=== PATIENT | male | born 1965 | race Caucasian/White ===

== ENCOUNTER → 2020-05-03 | Emergency (ER) | payer MEDICAID ==
[~2020-05-03] VITALS: Ht 172.7 cm; Wt 74.8 kg
[~2020-05-03] MED LIST: GASTROGRAFIN 120 ML SOL ONE; ONDANSETRON HCL 4 MG/2 ML VIAL IV ONE; ONDANSETRON HCL 4 MG/2 ML VIAL ONE; POTASSIUM EFFERVESENT TAB 25 MEQ PO ONE; PROMETHAZINE HCL 25 MG/ML 1ML IV PRN; SODIUM CHLORIDE 0.9% 1,000 ML IVB ONE
[2020-05-03 03:36] LABS: Hematocrit 52.7 % (41.0-53.0); Hemoglobin 18.6 g/dL (13.5-17.5); Mean Corpuscular Hemoglobin 29.8 pg (28.0-32.0); Mean Corpuscular Hgb Conc. 35.3 g/dL (32.0-36.0); Mean Corpuscular Volume 84.5 fL (80.0-100.0); Platelet Count (auto) 476 10^3/uL (140-450); Red Blood Cells 6.24 10^6/uL (4.5-5.90); Red Cell Distribution Width 12.8 % (11.8-14.3); White Blood Cell 6.3 10^3/uL (4.4-10.8)
[2020-05-03 03:52] LABS: Alanine Aminotransferase 54 U/L (16-61); Albumin 3.9 g/dL (3.4-5.0); Anion Gap 10 (5-15); Aspartate Aminotransferase 24 U/L (15-37); BUN/Creatinine Ratio 13.7; Basophils % (manual) 0 (0.0-2.0); Blast Cells 0; Blood Urea Nitrogen 18 mg/dL (7-18); Calcium 9.6 mg/dL (8.5-10.1); Carbon Dioxide 22 mmol/L (21-32); Chloride 101 mmol/L (98-107); GFR African American 73 mL/min; GFR Non-African American 61 mL/min; Glucose 122 mg/dL (74-106); Metamyelocytes % 0; Myelocytes % 0; Potassium 3.4 mmol/L (3.5-5.1); Promyelocytes % 0; Reactive Lymphocytes 0; Sodium 133 mmol/L (136-145)
[2020-05-03 03:57] LABS: Alkaline Phosphatase 129 U/L (45-117); Bilirubin, Total 0.7 mg/dL (0.2-1.0); Total Protein 9.1 g/dL (6.4-8.2)
[2020-05-03 06:49] LABS: Band Neutrophils % (manual) 32; Eosinophils % (manual) 2 (0-7); Lymphocytes % (manual) 19 (10.0-50.0)
[2020-05-03 06:50] LABS: Monocytes % (manual) 23 (0-12)
[2020-05-03 08:17] LABS: Magnesium 2.1 mg/dL (1.6-2.6)
[2020-05-03 16:54] VITALS: BP 157/101
== END | disposition home or self-care (01) ==
LOC: ER 03:12
DX: K52.9 Noninfective gastroenteritis and colitis, unspecified (principal); E87.6 Hypokalemia; F17.210 Nicotine dependence, cigarettes, uncomplicated; Z88.0 Allergy status to penicillin; Z20.822 Contact with and (suspected) exposure to COVID-19
CPT/HCPCS: 36415; 71046; 74176; 74250; 80053; 83690; 83735; 84484; 85007; 85027; 87426; 93005; 96361; 96374; 96375; 99285; J2405; J2550; Q9963

== ENCOUNTER 2021-10-30 19:44 | Emergency (ER) | payer MEDICAID | END 2021-10-30 21:31 | disposition left against medical advice (07) | LOC: ER 19:49 | DX: R10.9 Unspecified abdominal pain (principal); R19.7 Diarrhea, unspecified; Z53.21 Procedure and treatment not carried out due to patient leaving prior to being seen by health care provider ==

== ENCOUNTER 2022-05-06 22:04 | Emergency (ER) | payer MEDICAID ==
[~2022-05-06] VITALS: Ht 172.7 cm; Wt 77.0 kg
[2022-05-06] MEDS ORDERED: IOHEXOL 350 MG/ML 100ML IJ ONE (23:22)
[2022-05-06] MEDS ORDERED: HYDROmorphone HCL 2 MG/ML VL/or syr IV ONE (23:30)
[2022-05-06] MEDS ORDERED: ONDANSETRON HCL 4 MG/2 ML VIAL IV ONE (23:30)
[2022-05-07 00:16] LABS: Basophils # (auto) 0.1 10 ^3/uL (0-0.2); Basophils % (auto) 1.3 % (0.0-2.0); Eosinophils # (auto) 0.1 10 ^3/uL (0-0.8); Eosinophils % (auto) 1.2 % (0.0-7.0); Hematocrit 47.8 % (41.0-53.0); Hemoglobin 16.8 g/dL (13.5-17.5); Lymphocytes # (auto) 2.3 10 ^3/uL (0.4-5.4); Lymphocytes % (auto) 22.8 % (10.0-50.0); Mean Corpuscular Hemoglobin 30.3 pg (28.0-32.0); Mean Corpuscular Hgb Conc. 35.2 g/dL (32.0-36.0); Mean Corpuscular Volume 86.1 fL (80.0-100.0); Neutrophils # (auto) 6.4 10 ^3/uL (1.6-8.6); Neutrophils % (auto) 64.7 % (37.0-80.0); Nucleated Red Blood Cells % 0.2 %; Red Blood Cells 5.55 10^6/uL (4.5-5.90); White Blood Cell 9.9 10^3/uL (4.4-10.8)
[2022-05-07 00:46] LABS: Albumin 3.6 g/dL (3.4-5.0); Calcium 9.4 mg/dL (8.5-10.1); Potassium 3.7 mmol/L (3.5-5.1)
[2022-05-07 00:51] LABS: Bilirubin, Total 0.5 mg/dL (0.2-1.0); Total Protein 7.7 g/dL (6.4-8.2)
[2022-05-07 06:19] VITALS: BP 129/75
== END 2022-05-07 06:25 | disposition home or self-care (01) ==
LOC: ER 22:07
DX: I73.9 Peripheral vascular disease, unspecified (principal); F17.210 Nicotine dependence, cigarettes, uncomplicated; M79.672 Pain in left foot; M79.671 Pain in right foot; Z88.0 Allergy status to penicillin
CPT/HCPCS: 36415; 71045; 73706; 80053; 83880; 84484; 85025; 96374; 96375; 99285; J1170; J2405; Q9967

== ENCOUNTER 2022-07-22 00:04 | Emergency (ER) | payer MEDICAID ==
[~2022-07-22] VITALS: Ht 175.3 cm; Wt 79.5 kg
[2022-07-22] MEDS ORDERED: cefTRIAXone SOD 1,000 MG VL IM ONE (02:30)
[2022-07-22] MEDS ORDERED: CLIN300C8 PO (02:34)
[2022-07-22] MEDS ORDERED: PRED20TA2 PO (02:34)
[2022-07-22 03:57] VITALS: BP 135/94
== END 2022-07-22 04:05 | disposition home or self-care (01) ==
LOC: ER 00:04
DX: H66.91 Otitis media, unspecified, right ear (principal); J06.9 Acute upper respiratory infection, unspecified; F15.10 Other stimulant abuse, uncomplicated; F17.210 Nicotine dependence, cigarettes, uncomplicated; Z90.49 Acquired absence of other specified parts of digestive tract; Z79.2 Long term (current) use of antibiotics; Z79.899 Other long term (current) drug therapy; Z88.0 Allergy status to penicillin
CPT/HCPCS: 96372; 99283; J0696

== ENCOUNTER 2022-10-06 09:56 | Emergency (ER) | payer MEDICAID ==
[~2022-10-06] VITALS: Ht 172.7 cm; Wt 74.8 kg
[~2022-10-06 09:56] MED LIST changes: +CLIN300C70 PO; -GASTROGRAFIN 120 ML SOL ONE; -ONDANSETRON HCL 4 MG/2 ML VIAL IV ONE; -ONDANSETRON HCL 4 MG/2 ML VIAL ONE; -POTASSIUM EFFERVESENT TAB 25 MEQ PO ONE; +PRED20TA2 PO; -PROMETHAZINE HCL 25 MG/ML 1ML IV PRN; -SODIUM CHLORIDE 0.9% 1,000 ML IVB ONE
[2022-10-06 10:47] VITALS: BP 155/93; PULSE 95; RESP 18; TEMP 98.2; O2SAT 96
[2022-10-06] MEDS ORDERED: cefTRIAXone SOD 1,000 MG VL IM ONE (11:30)
[2022-10-06] MEDS ORDERED: AUG875T PO (13:14)
[2022-10-06] MEDS ORDERED: CEPH500C PO (13:14)
== END 2022-10-06 13:29 | disposition home or self-care (01) ==
LOC: ER 09:56
DX: L02.811 Cutaneous abscess of head [any part, except face] (principal); R21 Rash and other nonspecific skin eruption; F17.210 Nicotine dependence, cigarettes, uncomplicated; F15.10 Other stimulant abuse, uncomplicated
CPT/HCPCS: 76536; 96372; 99285; J0696

== ENCOUNTER 2024-07-21 06:22 | Emergency (ER) | payer MEDICAID, OTHER ==
[~2024-07-21] VITALS: Ht 172.7 cm; Wt 77.3 kg
[~2024-07-21 06:22] MED LIST changes: +AUG875T PO; +CEPH500C PO; +CLIN1CAP70 PO; -CLIN300C70 PO
--- NOTE | 2024-07-21 06:45 | ECG ---
[facility] Test Date: 2024-07-21 Test Time: 06:25:16 Pat Name: JEREMY BECKETT Department: ED Room: Gender: M [employer] Manager: GRACIE : 1965 Requested By: NIURKA PEDROZA Order Number: [id number] Reading MD: Cleve Eller Measurements Intervals [place] Rate: 79 P: 69 MN: 145 QRS: 89 QRSD: 107 T: 62 QT: 383 QTc: 440 Interpretive Statements Sinus rhythm Probable left atrial enlargement RSR' in V1 or V2, right VCD or RVH Baseline wander in lead(s) V1 Electronically Signed On 07-26-2024 11:38:16 PDT by Cleve Eller Please click the below link to view image of tracing.
--- NOTE | 2024-07-21 07:48 | ED.PDOC ---
GI ASSESSMENT HPI Comments 59 year old male JUVENTINO presents to the ED with chief complaint of abdominal pain. Patient reports that he has been experiencing upper abdominal pain with associated nausea, vomiting, and diarrhea for the past 2 days along with lower back pain for a week. Patient states the left side of his lower back hurts more. Patient denies any fever, chills, dysuria, cough, chest pain, SOB, or headache. Chief Complaint: Abdominal Pain Time Seen by MD: 07:46 Primary Care Provider: NONE Reviewed Notes: Nurses Notes, Airport [employer] Chief Notes, Medications, Allergies Allergies: Coded Allergies: Penicillins (Verified Allergy, Unknown, 05/03/20) Home Meds Active Scripts Cephalexin Monohydrate (Cephalexin) 500 Mg Cap, 500 MG PO QID for 5 Days, #20 CAP 0 Refills Prov:ROXI SEBASTIAN NP 10/06/22 Amoxicillin & Pot Clavulanate (AUGMENTIN TABLET) 875 Mg Tb, 875 MG PO BID for 7 Days, #14 TAB 0 Refills Prov:ROXI SEBASTIAN NP 10/06/22 Prednisone (Prednisone) 20 Mg Tab, 20 MG PO BID for 5 Days, #10 TAB 0 Refills Prov:KANG WANG 07/22/22 Clindamycin Hcl (Clindamycin Hcl) 300 Mg Cap, 1 CAP PO TID for 7 Days, #21 CAP 0 Refills Prov:KANG WANG 07/22/22 Information Source: Patient, Emergency Med Personnel Mode of Arrival: EMS Timing: Days Duration: Since onset Prehospital treatment: None Quality: Aching Vomitus: Watery Stool: Watery Severity: Moderate Recent: None Recent Hx of: None Pain Location: Epigastric Modifying Factors: Nothing Associated sign and symptoms: Nausea, Vomiting, Diarrhea, Abdominal Pain Past Medical History PAST MEDICAL HISTORY: Denies Surgical History: Appendectomy Family History Family History: Reviewed,noncontributory to illness, Unknown Social History Smoker: Cigarettes, Greater Than 1 Pack/Day Alcohol: Denies ETOH Use Drugs: Methamphetamine Lives In: Home Constitutional: denies: chills, diaphoresis, fatigue, fever, malaise, sweats, weakness, others EENTM: denies: blurred vision, double vision, ear bleeding, ear discharge, ear drainage, ear pain, ear ringing, eye pain, eye redness, hearing loss, mouth pa in, mouth swelling, nasal discharge, nose bleeding, nose congestion, nose pain, photophobia, tearing, throat pain, throat swelling, voice changes, others Respiratory: denies: cough, hemoptysis, orthopnea, SOB at rest, shortness of breath, SOB with excertion, stridor, wheezing, others Cardiovascular: denies: chest pain, dizzy spells, diaphoresis, Dyspnea on exertion, edema, irregular heart beat, left arm pain, lightheadedness, palpitations, PND, syncope, others Gastrointestinal: reports: abdominal pain, diarrhea, nausea, vomiting; denies: abdomen distended, blood streaked bowels, constipated, dysphagia, difficulty swallowing, hematemesis, melena, poor appetite, poor fluid intake, rectal bleeding, rectal pain, others Genitourinary: denies: burning, dysuria, flank pain, frequency, hematuria, incontinence, penile discharge, penile sore, pain, testicle pain, testicle swelling, urgency, others Neurological: denies: dizziness, fainting, headache, left sided numbness, left sided weakness, numbness, paresthesia, pre-existing deficit, right sided numbness, right sided weakness, seizure, speech problems, tingling, tremors, weakness, others Musculoskeletal: reports: back pain; denies: gout, joint pain, joint swelling, muscle pain, muscle stiffness, neck pain, others Integumetry: denies: bruises, change in color, change in hair/nails, dryness, laceration, lesions, lumps, rash, wounds, others Allergic/Immunocompromised: denies: Difficulty Healing, Frequent Infections, Hives, Itching, others Hematologic/Lymphatic: denies: anemia, blood clots, easy bleeding, easy bruising, swollen glands, others Endocrine: denies: excessive hunger, excessive sweating, excessive thirst, excessive urination, flushing, intolerance to cold, intolerance to heat, unexplained weight gain, unexplained weight loss, others Psychiatric: denies: anxiety, bipolar disorder, depression, hopeless, panic disorder, schizophrenia, sleepless, suicidal, others All Other Systems: Reviewed and Negative Physical Exam Exam Comments 59-year-old male with a severe back pain and diarrhea for the past few days General Appearance: Moderate Distress, Normal HEENT: Normal ENT Inspection, PERRL/EOMI, Pharynx Normal, TMs Normal Neck: Full Range of Motion, Non-Tender, Normal, Normal Inspection Respiratory: Chest Non-Tender, Lungs Clear, No Accessory Muscle Use, No Respiratory Distress, Normal Breath Sounds Cardiovascular: No Edema, No JVD, No Murmur, No Gallop, Normal Peripheral Pulses, Regular Rate/Rhythm Breast Exam: Deferred Gastrointestinal: No Organomegaly, Non Tender, No Pulsatile Mass, Normal Bowel Sounds, Soft, Other (Patient from the bag radiated into the anterior abdomen) Genitalia: Deferred Pelvic: Deferred Rectal: Deferred Extremities: No calf tenderness, Normal capillary refill, Normal inspection, Normal range of motion, Non-tender, No pedal edema Musculoskeletal : Location: Bilateral Extremity Location: Back Apperance: Normal, Limited ROM, Tenderness: Moderate Neurologic: Alert, lumber piler II-XII nml as Tested, No Motor Deficits, Normal Affect, Normal Mood, No Sensory Deficits Cerebellar Function: Normal Reflexes: Normal Skin: Dry, Normal Color, Warm Peripheral Pulses: 1+ carotid (R), 1+ carotid (L) Lymphatic: No Adenopathy Was a procedure done? Was a procedure done?: No GI differential Dx Differential Diagnosis: Diverticular disease, Gastritis/PUD, Gastroenteritis, UTI, Urolithiasis, Dehydration, Electrolyte Imbalance, Food Poisoning, Bacterial, Viral, Kidney Stone Other Differential Diagnosis Low back pain radiculopathy X-Ray, Labs, Meds, VS Vital Signs Date Time Temp Pulse Resp B/P (MAP) Pulse Ox O2 Delivery O2 Flow Rate FiO2 07/21/24 11:12 97.8 98 16 158/98 (118) 94 97.8 07/21/24 08:15 87 07/21/24 08:03 97 16 97 Room Air* 0 07/21/24 07:58 98.0 97 16 143/96 (112) 97 98.0 07/21/24 06:33 98.9 89 14 140/98 (112) 100 98.9 07/21/24 06:25 79 Lab Test 07/21/24 07:58 Range/Units White Blood Count 8.3 4.4-10.8 10^3/uL Red Blood Count 6.59 H 4.5-5.90 10^6/uL Hemoglobin 19.7 H 13.5-17.5 g/dL Hematocrit 57.0 H 41.0-53.0 % Mean Corpuscular Volume 86.5 80.0-100.0 fL Mean Corpuscular Hemoglobin 30.0 28.0-32.0 pg Mean Corpuscular Hemoglobin Concent 34.6 32.0-36.0 g/dL Red Cell Distribution Width 13.3 11.8-14.3 % Platelet Count 253 140-450 10^3/uL Mean Platelet Volume 8.3 6.9-10.8 fL Neutrophils (%) (Auto) 87.9 H 37.0-80.0 % Lymphocytes (%) (Auto) 4.3 L 10.0-50.0 % Monocytes (%) (Auto) 7.5 0.0-12.0 % Eosinophils (%) (Auto) 0.0 0.0-7.0 % Basophils (%) (Auto) 0.3 0.0-2.0 % Neutrophils # (Auto) 7.3 1.6-8.6 10 ^3/uL Lymphocytes # (Auto) 0.4 0.4-5.4 10 ^3/uL Monocytes # (Auto) 0.6 0-1.3 10 ^3/uL Eosinophils # (Auto) 0 0-0.8 10 ^3/uL Basophils # (Auto) 0 0-0.2 10 ^3/uL Nucleated Red Blood Cells 0.2 % Sodium Level 136 136-145 mmol/L Potassium Level 3.8 3.5-5.1 mmol/L Chloride Level 104 98-107 mmol/L Carbon Dioxide Level 23 20-31 mmol/L Anion Gap 9 5-15 Blood Urea Nitrogen 12 9-23 mg/dL Creatinine 1.09 0.700-1.30 mg/dL Glomerular Filtration Rate Calc 78 >90 mL/min BUN/Creatinine Ratio 11.0 10.0-20.0 Serum Glucose 121 H 74-106 mg/dL Calcium Level 9.6 8.7-10.4 mg/dL Magnesium Level 2.2 1.6-2.6 mg/dL Total Bilirubin 0.8 0.2-1.0 mg/dL Aspartate Amino Transferase (AST) 34 13-40 U/L Alanine Aminotransferase (ALT) 37 7-40 U/L Alkaline Phosphatase 129 H 46-116 U/L Total Protein 8.3 H 5.7-8.2 g/dL Albumin 4.8 3.2-4.8 g/dL Lipase 35 12-53 U/L X-Ray, Labs, Meds, VS Comment Course in the emergency department patient came in complaining of back pain for one week with some diarrhea EKG shows normal sinus rhythm at 87 with left atrial enlargement CBC 8300 with 67.9% neutrophils H&H 39.7 and 57 CMP negative except for blood sugar of 127 Lipase 35 Magnesium 2.2 Patient eloped Time of 1ST Reevaluation: 08:46 Reevaluation 1ST: Unchanged Time of 2ND Reevaluation: 16:58 Reevaluation 2ND: Improved Patient Education/Counseling: Diagnosis, Treatment Family Education/Counseling: No Family Present Departure 1 Departure Time of Disposition: 16:59 Impression: Primary Impression: Low back pain Qualified Codes: M54.50 - Low back pain, unspecified Disposition: 07 LEFT AWOL/ELOPED Condition: Fair Discharged With: Self Critical Care Note Critical Care Time?: No Stability Stability form required: No Heart Score Heart Score: Heart Score Response (Comments) Value History N/A 0 EKG Normal 0 Age 45-64 1 Risk Factors No known risk factors 0 Troponin N/A 0 Total 1 I personally scribed for NIURKA PEDROZA MD ([email or web address]) on 07/21/24 at 07:47. Electronically submitted by Andrea Ahmadi ([email or web address]). NIURKA PEDROZA MD July 21, 2024 07:47
[2024-07-21 08:03] VITALS: PULSE 97; RESP 16; O2SAT 97
[2024-07-21 08:30] LABS: Basophils # (auto) 0 10 ^3/uL (0-0.2); Basophils % (auto) 0.3 % (0.0-2.0); Eosinophils # (auto) 0 10 ^3/uL (0-0.8); Lymphocytes # (auto) 0.4 10 ^3/uL (0.4-5.4); Monocytes # (auto) 0.6 10 ^3/uL (0-1.3); Nucleated Red Blood Cells % 0.2 %
[2024-07-21 08:32] LABS: Hemoglobin 19.7 g/dL (13.5-17.5); Lymphocytes % (auto) 4.3 % (10.0-50.0); Mean Corpuscular Hgb Conc. 34.6 g/dL (32.0-36.0); Mean Corpuscular Volume 86.5 fL (80.0-100.0); Monocytes % (auto) 7.5 % (0.0-12.0); Neutrophils # (auto) 7.3 10 ^3/uL (1.6-8.6); Neutrophils % (auto) 87.9 % (37.0-80.0); Platelet Count (auto) 253 10^3/uL (140-450); Red Blood Cells 6.59 10^6/uL (4.5-5.90); Red Cell Distribution Width 13.3 % (11.8-14.3); White Blood Cell 8.3 10^3/uL (4.4-10.8)
[2024-07-21 08:48] LABS: Alanine Aminotransferase 37 U/L (7-40); Anion Gap 9 (5-15); Blood Urea Nitrogen 12 mg/dL (9-23); Calcium 9.6 mg/dL (8.7-10.4); Carbon Dioxide 23 mmol/L (20-31); Chloride 104 mmol/L (98-107); Lipase 35 U/L (12-53); Magnesium 2.2 mg/dL (1.6-2.6); Potassium 3.8 mmol/L (3.5-5.1)
[2024-07-21 08:49] LABS: Aspartate Aminotransferase 34 U/L (13-40); Bilirubin, Total 0.8 mg/dL (0.2-1.0)
[2024-07-21 08:54] LABS: Albumin 4.8 g/dL (3.2-4.8); Alkaline Phosphatase 129 U/L (46-116); Glucose 121 mg/dL (74-106); Sodium 136 mmol/L (136-145); Total Protein 8.3 g/dL (5.7-8.2)
[2024-07-21] MEDS: HYDROmorphone HCL 2 MG/ML VL/or syr IV ONE (09:30)
[2024-07-21] MEDS: METOCLOPRAMIDE HCL 5MG/ml INJ 2ml VIAL IV ONE (09:30)
[2024-07-21] MEDS: SODIUM CHLORIDE 0.9% 500 ML IVB ONE (09:30)
[2024-07-21 11:12] VITALS: BP 158/98; PULSE 98; RESP 16; TEMP 97.8; O2SAT 94
--- NOTE | 2024-07-23 12:27 | ECG ---
[facility] Test Date: 2024-07-21 Test Time: 08:15:26 Pat Name: JEREMY BECKETT Department: ED Room: Gender: M [employer] Hel[employer]: ID : [id number] Requested By: NIURKA PEDROZA Order Number: [id number] Reading MD: Cleve Eller Measurements Intervals [place] Rate: 87 P: 70 LA: 154 QRS: 84 QRSD: 97 T: 56 QT: 366 QTc: 441 Interpretive Statements Sinus rhythm Probable left atrial enlargement RSR' in V1 or V2, right VCD or RVH Baseline wander in lead(s) II,III,aVF Electronically Signed On 07-26-2024 11:38:36 PDT by Cleve Eller Please click the below link to view image of tracing.
== END 2024-07-21 16:16 | disposition left against medical advice (07) ==
LOC: ER 06:22 → EDBD 06:22 → ER 16:16
DX: M54.50 Low back pain, unspecified (principal); R11.2 Nausea with vomiting, unspecified; F17.210 Nicotine dependence, cigarettes, uncomplicated; Z90.49 Acquired absence of other specified parts of digestive tract; Z88.0 Allergy status to penicillin; Z79.899 Other long term (current) drug therapy
CPT/HCPCS: 36415; 80053; 83690; 83735; 85025; 93005

== ENCOUNTER 2024-07-23 06:13 | Inpatient (IN) | payer OTHER ==
[~2024-07-23] VITALS: Ht 172.7 cm; Wt 77.6 kg
--- NOTE | 2024-07-23 06:30 | ED.PDOC ---
GI ASSESSMENT HPI Comments 59-year-old male BIBA with prior medical history of appendectomy in the chief complaint of hematemesis for three days. EMS state that the patient was here three days given but was discharged. Patient reports on having worsening epigastric pain which radiates to the left lower quadrant and came into the ER, because he is unable to take the pain anymore. Patient is allergic to penicillin. Denies chills, fever, /D, SOB, CP. No other associated symptoms, modifiers, recent injuries or sick contacts present at this time. Chief Complaint: Abdominal Pain Time Seen by MD: 06:15 Primary Care Provider: NONE Reviewed Notes: Nurses Notes, Medications, Allergies Allergies: Coded Allergies: Penicillins (Verified Allergy, Unknown, 05/03/20) Home Meds Active Scripts Cephalexin Monohydrate (Cephalexin) 500 Mg Cap, 500 MG PO QID for 5 Days, #20 CAP 0 Refills Prov:ROXI SEBASTIAN NP 10/06/22 Amoxicillin & Pot Clavulanate (AUGMENTIN TABLET) 875 Mg Tb, 875 MG PO BID for 7 Days, #14 TAB 0 Refills Prov:ROXI SEBASTIAN NP 10/06/22 Prednisone (Prednisone) 20 Mg Tab, 20 MG PO BID for 5 Days, #10 TAB 0 Refills Prov:KANG WANG 07/22/22 Clindamycin Hcl (Clindamycin Hcl) 300 Mg Cap, 1 CAP PO TID for 7 Days, #21 CAP 0 Refills Prov:KANG WANG 07/22/22 Information Source: Patient Mode of Arrival: EMS Timing: Days Duration: Since onset, Days Prehospital treatment: None Quality: Aching Vomitus: Bloody Stool: Normal Severity: Moderate Recent: None Recent Hx of: None Pain Location: Epigastric, LLQ Associated sign and symptoms: Nausea, Vomiting, Abdominal Pain Past Medical History PAST MEDICAL HISTORY: Denies Surgical History: Appendectomy Family History Family History: Reviewed,noncontributory to illness, Unknown Social History Smoker: Unknown Alcohol: Unknown Drugs: Unknown Lives In: Home Constitutional: denies: chills, diaphoresis, fatigue, fever, malaise, sweats, weakness, others EENTM: denies: blurred vision, double vision, ear bleeding, ear discharge, ear drainage, ear pain, ear ringing, eye pain, eye redness, hearing loss, mouth pain, mouth swelling, nasal discharge, nose bleeding, nose congestion, nose pain, photophobia, tearing, throat pain, throat swelling, voice changes, others Respiratory: denies: cough, hemoptysis, orthopnea, SOB at rest, shortness of breath, SOB with excertion, stridor, wheezing, others Cardiovascular: denies: chest pain, dizzy spells, diaphoresis, Dyspnea on exertion, edema, irregular heart beat, left arm pain, lightheadedness, palpitations, PND, syncope, others Gastrointestinal: reports: abdominal pain, nausea, vomiting; denies: abdomen distended, blood streaked bowels, constipated, diarrhea, dysphagia, difficulty swallowing, hematemesis, melena, poor appetite, poor fluid intake, rectal bleeding, rectal pain, others Genitourinary: denies: burning, dysuria, flank pain, frequency, hematuria, incontinence, penile discharge, penile sore, pain, testicle pain, testicle swelling, urgency, others Neurological: denies: dizziness, fainting, headache, left sided numbness, left sided weakness, numbness, paresthesia, pre-existing deficit, right sided numbness, right sided weakness, seizure, speech problems, tingling, tremors, weakness, others Musculoskeletal: denies: back pain, gout, joint pain, joint swelling, muscle pain, muscle stiffness, neck pain, others Integumetry: denies: bruises, change in color, change in hair/nails, dryness, laceration, lesions, lumps, rash, wounds, others Allergic/Immunocompromised: denies: Difficulty Healing, Frequent Infections, Hives, Itching, others Hematologic/Lymphatic: denies: anemia, blood clots, easy bleeding, easy bruising, swollen glands, others Endocrine: denies: excessive hunger, excessive sweating, excessive thirst, excessive urination, flushing, intolerance to cold, intolerance to heat, unexplained weight gain, unexplained weight loss, others Psychiatric: denies: anxiety, bipolar disorder, depression, hopeless, panic disorder, schizophrenia, sleepless, suicidal, others All Other Systems: Reviewed and Negative Physical Exam General Appearance: No Apparent Distress, Normal HEENT: Normal ENT Inspection, Pharynx Normal, TMs Normal Neck: Full Range of Motion, Non-Tender, Normal, Normal Inspection Respiratory: Chest Non-Tender, Lungs Clear, No Accessory Muscle Use, No Respiratory Distress, Normal Breath Sounds Cardiovascular: No Edema, No JVD, No Murmur, No Gallop, Normal Peripheral Pulses, Regular Rate/Rhythm Breast Exam: Deferred Gastrointestinal: No Organomegaly, Non Tender, No Pulsatile Mass, Normal Bowel Sounds, Soft Genitalia: Deferred Pelvic: Deferred Rectal: Deferred Extremities: No calf tenderness, Normal capillary refill, Normal inspection, Normal range of motion, Non-tender, No pedal edema Musculoskeletal : Apperance: Normal Neurologic: Alert, production helper II-XII nml as Tested, No Motor Deficits, Normal Affect, Normal Mood, No Sensory Deficits Cerebellar Function: Normal Reflexes: Normal Skin: Dry, Normal Color, Warm Lymphatic: No Adenopathy Was a procedure done? Was a procedure done?: No GI differential Dx Differential Diagnosis: Appendicitis, Gastritis/PUD, Gastroenteritis, UTI, Urolithiasis, Dehydration, Electrolyte Imbalance, Viral X-Ray, Labs, Meds, VS Vital Signs Date Time Temp Pulse Resp B/P (MAP) Pulse Ox O2 Delivery O2 Flow Rate FiO2 07/23/24 08:03 85 20 165/93 07/23/24 07:30 79 12 95 Nasal Cannula* 3 32 07/23/24 07:30 98.7 79 12 151/87 (108) 85 98.7 07/23/24 07:21 98.0 82 19 157/100 (119) 98 98.0 07/23/24 07:14 82 19 157/100 07/23/24 06:18 98.7 99 18 145/84 (104) 100 98.7 Lab Test 07/23/24 06:46 Range/Units White Blood Count 9.0 4.4-10.8 10^3/uL Red Blood Count 6.10 H 4.5-5.90 10^6/uL Hemoglobin 18.2 H 13.5-17.5 g/dL Hematocrit 51.4 41.0-53.0 % Mean Corpuscular Volume 84.4 80.0-100.0 fL Mean Corpuscular Hemoglobin 29.9 28.0-32.0 pg Mean Corpuscular Hemoglobin Concent 35.4 32.0-36.0 g/dL Red Cell Distribution Width 13.3 11.8-14.3 % Platelet Count 298 140-450 10^3/uL Mean Platelet Volume 8.4 6.9-10.8 fL Neutrophils (%) (Auto) 74.5 37.0-80.0 % Lymphocytes (%) (Auto) 13.1 10.0-50.0 % Monocytes (%) (Auto) 11.7 0.0-12.0 % Eosinophils (%) (Auto) 0.3 0.0-7.0 % Basophils (%) (Auto) 0.4 0.0-2.0 % Neutrophils # (Auto) 6.7 1.6-8.6 10 ^3/uL Lymphocytes # (Auto) 1.2 0.4-5.4 10 ^3/uL Monocytes # (Auto) 1.1 0-1.3 10 ^3/uL Eosinophils # (Auto) 0 0-0.8 10 ^3/uL Basophils # (Auto) 0 0-0.2 10 ^3/uL Nucleated Red Blood Cells 0.4 % Sodium Level 140 136-145 mmol/L Potassium Level 3.6 3.5-5.1 mmol/L Chloride Level 104 98-107 mmol/L Carbon Dioxide Level 26 20-31 mmol/L Anion Gap 10 5-15 Blood Urea Nitrogen 15 9-23 mg/dL Creatinine 1.09 0.700-1.30 mg/dL Glomerular Filtration Rate Calc 78 >90 mL/min BUN/Creatinine Ratio 13.8 10.0-20.0 Serum Glucose 122 H 74-106 mg/dL Calcium Level 9.9 8.7-10.4 mg/dL Total Bilirubin 0.6 0.2-1.0 mg/dL Aspartate Amino Transferase (AST) 40 13-40 U/L Alanine Aminotransferase (ALT) 71 H 7-40 U/L Alkaline Phosphatase 119 H 46-116 U/L Total Protein 7.9 5.7-8.2 g/dL Albumin 4.7 3.2-4.8 g/dL Lipase 42 12-53 U/L Current Medications Medications (Trade) Dose Ordered Sig/Kasia Route Start Time Stop Time Status Last Admin Sodium Chloride 1,000 ml @ 1,000 mls/hr Q1H ONCE IV 07/23/24 06:45 07/23/24 07:44 DC 07/23/24 07:13 Ondansetron HCl (Zofran) 4 mg ONCE ONCE IV 07/23/24 06:45 07/23/24 06:46 DC 07/23/24 07:12 Pantoprazole Sodium (Protonix) 40 mg ONCE ONCE IV 07/23/24 06:45 07/23/24 06:46 DC 07/23/24 07:12 Morphine Sulfate 4 mg ONCE ONCE IV 07/23/24 06:45 07/23/24 06:46 DC 07/23/24 07:14 PATIENT: JEREMY BECKETT ACCT: [id number] UNIT: [id number] : 1965 LOC: ER ROOM / BED: / AGE / SEX: 59 / M ADM STATUS: REG ER SERVICE ORDERING PHYSICIAN: RAMSES MOORE MD PROCEDURE(s): CXRP - CHEST PORTABLE REASON: epigastric pain ORDER NUMBER(s): [id number], ACCESSION NUMBER(s): [id number] CHEST RADIOGRAPH Indication: epigastric pain Technique: Single frontal view of the chest was obtained COMPARISON: XY CHEST PORTABLE on DOS: 05/06/22 FINDINGS: Lines and Tubes: None Lungs: Clear Pleura: No effusion. No pneumothorax. Cardiomediastinal contours: Unremarkable Bones: Unremarkable IMPRESSION: No acute disease. ENT: JEREMY BECKETT ACCT: [id number] UNIT: [id number] : 1965 LOC: ER ROOM / BED: / AGE / SEX: 59 / M ADM STATUS: REG ER SERVICE ORDERING PHYSICIAN: RAMSES MOORE MD PROCEDURE(s): ABPLIV - CT AB PEL WITH IV CON ONLY REASON: epigastric pain ORDER NUMBER(s): [id number], ACCESSION NUMBER(s): [id number] Exam: CT CT AB PEL WITH IV CON ONLY History: epigastric pain TECHNIQUE: Multiple contiguous axial CT images of the abdomen and pelvis were obtained with intravenous contrast. The images were reformatted to generate coronal and sagittal reconstructions. 100 cc of Omnipaque 350 contrast was injected intravenously. All CT scans at this medical facility are performed using dose modulation te chniques as appropriate to a performed exam including the following:Automated exposure control was utilized; adjustment of the MA and/or KV according to patient size; and use of iterative reconstruction technique. Radiation Dose Information: CT Dose: CTDI volume is 9 mGy. Dose-length product is 436 mGy*cm Comparison: None FINDINGS: There is mild fatty infiltration of the liver. The gallbladder, pancreas, kidneys, adrenal glands, and spleen appear within normal limits. There is no evidence of abdominal lymphadenopathy. There is no free fluid or free air. The stomach grossly appears unremarkable. The small and large bowel loops demonstrate normal caliber and distribution. The appendix is not seen in the right lower quadrant abdomen. There are no secondary signs of acute appendicitis. The abdominal aorta and IVC appear within normal limits. The bladder appears within normal limits the degree of distention. Pelvic organ is unremarkable. There is no evidence of a pelvic mass or lymphadenopathy. There is no free fluid collection. Lung bases are clear. There is no acute osseous abnormality. IMPRESSION: 1. There is no acute process in the abdomen and pelvis. 2. Mild fatty infiltration of the liver. HS:Y Time of 1ST Reevaluation: 06:45 Reevaluation 1ST: Unchanged Patient Education/Counseling: Diagnosis, Treatment, Prognosis Family Education/Counseling: No Family Present Departure 1 Departure Time of Disposition: 08:46 (Patient presented with abdominal pain that was concerning for possible appendicits, gastritis, cholecystitis, colitis, gastroenteritis, sbo, or orther possible surgical emergency. Data: 1. I ordered and reviewed the result of at least 3 labs including a CBC, BMP, and Urinalysis. 2. I independently interpreted the following tests: CT Abdoment and Pelvis is concerning for benign abdomen .Risk:This patient has a high risk of morbidity due to further diagnostic testing or treatment and may suffer from an acute abdominal process disorder. Workup reveals intractable abdominal pain and patient should be admitted for further workup. and possible expert consultation. ) Impression: Primary Impression: Intractable abdominal pain Disposition: 09 ADMITTED INPATIENT Admit to: Med Surg Condition: Serious Critical Care Note Critical Care Time?: Yes Critical care comment: Intractable abdominal pain Authorized and Performed by: Ramses Moore MD Total critical care time: Approximately 34 minutes Due to a high probability of clinically significant, life threatening deterioration, the patient required my highest level of preparedness to intervene emergently and I personally spent this critical care time directly and personally managing the patient. This critical care time included obtaining a history; examining the patient; pulse oximetry; ordering and review of studies; arranging urgent treatment with development of a management plan; evaluation of patient's response to treatment; frequent reassessment; and, discussions with other providers. This critical care time was performed to assess and manage the high probability of imminent, life-threatening deterioration that could result in multi-organ failure. It was exclusive of separately billable procedures and treating other patients and teaching time. Please see my other sections and the rest of the note for further information on patient assessment and treatment. Stability Stability form required: No I personally scribed for RAMSES MOORE MD ([email or web address]) on 07/23/24 at 06:30. Electronically submitted by Jac Dickey ([email or web address]). I personally scribed for RAMSES MOORE MD ([email or web address]) on 07/23/24 at 08:36. Electronically submitted by Yossi Brenner ([email or web address]). RAMSES MOORE MD July 23, 2024 06:30
[2024-07-23 07:03] LABS: Eosinophils # (auto) 0 10 ^3/uL (0-0.8); Mean Corpuscular Volume 84.4 fL (80.0-100.0); Monocytes # (auto) 1.1 10 ^3/uL (0-1.3); Red Cell Distribution Width 13.3 % (11.8-14.3)
[2024-07-23 07:07] LABS: Basophils # (auto) 0 10 ^3/uL (0-0.2); Basophils % (auto) 0.4 % (0.0-2.0); Eosinophils % (auto) 0.3 % (0.0-7.0); Hematocrit 51.4 % (41.0-53.0); Hemoglobin 18.2 g/dL (13.5-17.5); Lymphocytes # (auto) 1.2 10 ^3/uL (0.4-5.4); Lymphocytes % (auto) 13.1 % (10.0-50.0); Mean Corpuscular Hemoglobin 29.9 pg (28.0-32.0); Mean Corpuscular Hgb Conc. 35.4 g/dL (32.0-36.0); Monocytes % (auto) 11.7 % (0.0-12.0); Neutrophils # (auto) 6.7 10 ^3/uL (1.6-8.6); Neutrophils % (auto) 74.5 % (37.0-80.0); Nucleated Red Blood Cells % 0.4 %; Platelet Count (auto) 298 10^3/uL (140-450)
[2024-07-23] MEDS: ONDANSETRON HCL 4 MG/2 ML VIAL IV ONE (07:12)
[2024-07-23] MEDS: PANTOPRAZOLE 40 MG/10 ML VIAL INJ IV ONE (07:12)
[2024-07-23] MEDS: SODIUM CHLORIDE 0.9% 1,000 ML IV ONE ×2 (07:13→10:22)
[2024-07-23] MEDS: MORPHINE SULFATE 4 MG/ML SYR/VIAL IV ONE (07:14)
[2024-07-23 07:17] LABS: Albumin 4.7 g/dL (3.2-4.8); Anion Gap 10 (5-15); Aspartate Aminotransferase 40 U/L (13-40); BUN/Creatinine Ratio 13.8 (10.0-20.0); Blood Urea Nitrogen 15 mg/dL (9-23); Calcium 9.9 mg/dL (8.7-10.4); Carbon Dioxide 26 mmol/L (20-31); Chloride 104 mmol/L (98-107); Lipase 42 U/L (12-53); Potassium 3.6 mmol/L (3.5-5.1); Sodium 140 mmol/L (136-145); Total Protein 7.9 g/dL (5.7-8.2)
[2024-07-23 07:18] LABS: Bilirubin, Total 0.6 mg/dL (0.2-1.0)
[2024-07-23 07:22] LABS: Alanine Aminotransferase 71 U/L (7-40); Alkaline Phosphatase 119 U/L (46-116); Glucose 122 mg/dL (74-106)
[2024-07-23 07:30] VITALS: PULSE 79; RESP 12; O2SAT 95
[2024-07-23] MEDS: IOHEXOL 300 MG/ML 100ML BOTTLE IJ ONE (07:59)
--- NOTE | 2024-07-23 08:14 | DVH ---
CHEST RADIOGRAPH Indication: epigastric pain Technique: Single frontal view of the chest was obtained COMPARISON: XY CHEST PORTABLE on DOS: 05/06/22 FINDINGS: Lines and Tubes: None Lungs: Clear Pleura: No effusion. No pneumothorax. Cardiomediastinal contours: Unremarkable Bones: Unremarkable IMPRESSION: No acute disease.
--- NOTE | 2024-07-23 08:26 | DVH ---
Exam: CT CT AB PEL WITH IV CON ONLY History: epigastric pain TECHNIQUE: Multiple contiguous axial CT images of the abdomen and pelvis were obtained with intraveno us contrast. The images were reformatted to generate coronal and sagittal reconstructions. 100 cc of Omnipaque 350 contrast was injected intravenously. All CT scans at this medical facility are performed using dose modulation techniques as appropriate t o a performed exam including the following:Automated exposure control was utilized; adjustment of the MA and/or KV according to patient size; and use of iterative reconstruction technique. Radiation Dose Information: CT Dose: CTDI volume is 9 mGy. Dose-length product is 436 mGy*cm Comparison: None FINDINGS: There is mild fatty infiltration of the liver. The gallbladder, pancreas, kidneys, adrenal glands, a nd spleen appear within normal limits. There is no evidence of abdominal lymphadenopathy. There is no free fluid or free air. The stomach grossly appears unremarkable. The small and large bowel loops demonstrate normal caliber and distribution. The appendix is not seen in the right lower quadrant abdomen. There are no seconda ry signs of acute appendicitis. The abdominal aorta and IVC appear within normal limits. The bladder appears within normal limits the degree of distention. Pelvic organ is unremarkable. Ther e is no evidence of a pelvic mass or lymphadenopathy. There is no free fluid collection. Lung bases are clear. There is no acute osseous abnormality. IMPRESSION: 1. There is no acute process in the abdomen and pelvis. 2. Mild fatty infiltration of the liver. HS:Y
[2024-07-23] MEDS ORDERED: METOCLOPRAMIDE HCL 5MG/ml INJ 2ml VIAL IV PRN (09:45)
[2024-07-23] MEDS ORDERED: DOCUSATE SOD 100 MG CAP PO PRN (09:45)
[2024-07-23 10:35] VITALS: BP 149/93; PULSE 76; PULSE 85; RESP 18; TEMP 97.7; O2SAT 95; O2SAT 97
--- NOTE | 2024-07-23 11:03 | DVHHP2 ---
History of Present Illness Reason for Visit: Abdominal pain History of Present Illness Daniel Ferguson is a 59-year-old male with no significant past medial history who came in for abdominal pain, nausea, and vomiting. Patient states the pain started about 3 days ago, and last night he began having nausea and vomiting. Patient states he has not eating anything since last night (07/22/2024) at 2000. He states he is still having a hard time keeping anything down and still experiencing abdominal pain. Patient states the pain is epigastric and radiates to LLQ. Past Surgical History: Appendectomy Smoke: 1 pack per day ALCOHOL: occassional Drugs: Marijuana, Other (Methamphetamines) Review of Systems Constitutional: No: Fever, Chills, Sweats, Weakness, Malaise, Other Eyes: No: Pain, Vision change, Conjunctivae inflammation, Eyelid inflammation, Other, Redness ENT: No: Ear pain, Ear discharge, Nose pain, Nose discharge, Nose congestion, Mouth pain, Mouth swelling, Throat pain, Throat swelling, Other Respiratory: No: Cough, Dry, Shortness of breath, SOB with excertion, Wheezing, Hemoptysis, Pleuritic Pain, Sputum, Wheezing, Other Cardiovascular: No: Chest Pain, Palpitations, Orthopnea, Paroxysmal Noc. Dyspnea, Edema, Lt Headedness, Other Gastrointestinal: Nausea, Vomiting, Abdominal Pain; No: Diarrhea, Constipation, Melena, Hematochezia, Other Genitourinary: No Dysuria, No Frequency, No Incontinence, No Hematuria, No Retention, No Other Musculoskeletal: No: other, neck pain, shoulder pain, arm pain, back pain, hand pain, leg pain, foot pain Skin: No: Rash, Lesions, Jaundice, Bruising, Other Neurological: No: Weakness, Numbness, Incoordination, Change in speech, Confusion, Seizures, Other Allergies: Coded Allergies: Penicillins (Verified Allergy, Unknown, 05/03/20) Exam Vital Signs Vital Signs Date Time Temp Pulse Resp B/P (MAP) Pulse Ox O2 Delivery O2 Flow Rate FiO2 07/23/24 08:03 85 20 165/93 07/23/24 07:30 95 Nasal Cannula* 3 32 07/23/24 07:30 98.7 98.7 General Appearance: Alert, Oriented X3, Cooperative, mild distress HEENT: Atraumatic, PERRLA Respiratory: Clear to auscultation, Normal air movement Cardiovascular: Regular rate, Normal S1, No murmurs Abdominal: Normal bowel sounds Extremities: No clubbing, No cyanosis, No edema Skin: No rashes, No breakdown, No significant lesion Neuro: Normal gait, Normal speech, Strength at 5/5 X4 ext Psych/Mental Status: Mental status NL, Mood NL Labs/Xrays Labs Test 07/23/24 06:46 Range/Units White Blood Count 9.0 4.4-10.8 10^3/uL Red Blood Count 6.10 H 4.5-5.90 10^6/uL Hemoglobin 18.2 H 13.5-17.5 g/dL Hematocrit 51.4 41.0-53.0 % Mean Corpuscular Volume 84.4 80.0-100.0 fL Mean Corpuscular Hemoglobin 29.9 28.0-32.0 pg Mean Corpuscular Hemoglobin Concent 35.4 32.0-36.0 g/dL Red Cell Distribution Width 13.3 11.8-14.3 % Platelet Count 298 140-450 10^3/uL Mean Platelet Volume 8.4 6.9-10.8 fL Neutrophils (%) (Auto) 74.5 37.0-80.0 % Lymphocytes (%) (Auto) 13.1 10.0-50.0 % Monocytes (%) (Auto) 11.7 0.0-12.0 % Eosinophils (%) (Auto) 0.3 0.0-7.0 % Basophils (%) (Auto) 0.4 0.0-2.0 % Neutrophils # (Auto) 6.7 1.6-8.6 10 ^3/uL Lymphocytes # (Auto) 1.2 0.4-5.4 10 ^3/uL Monocytes # (Auto) 1.1 0-1.3 10 ^3/uL Eosinophils # (Auto) 0 0-0.8 10 ^3/uL Basophils # (Auto) 0 0-0.2 10 ^3/uL Nucleated Red Blood Cells 0.4 % Sodium Level 140 136-145 mmol/L Potassium Level 3.6 3.5-5.1 mmol/L Chloride Level 104 98-107 mmol/L Carbon Dioxide Level 26 20-31 mmol/L Anion Gap 10 5-15 Blood Urea Nitrogen 15 9-23 mg/dL Creatinine 1.09 0.700-1.30 mg/dL Glomerular Filtration Rate Calc 78 >90 mL/min BUN/Creatinine Ratio 13.8 10.0-20.0 Serum Glucose 122 H 74-106 mg/dL Calcium Level 9.9 8.7-10.4 mg/dL Total Bilirubin 0.6 0.2-1.0 mg/dL Aspartate Amino Transferase (AST) 40 13-40 U/L Alanine Aminotransferase (ALT) 71 H 7-40 U/L Alkaline Phosphatase 119 H 46-116 U/L Total Protein 7.9 5.7-8.2 g/dL Albumin 4.7 3.2-4.8 g/dL Lipase 42 12-53 U/L CHEST RADIOGRAPH FINDINGS: Lines and Tubes: None Lungs: Clear Pleura: No effusion. No pneumothorax. Cardiomediastinal contours: Unremarkable Bones: Unremarkable IMPRESSION: No acute disease. Exam: CT CT AB PEL WITH IV CON ONLY FINDINGS: There is mild fatty infiltration of the liver. The gallbladder, pancreas, k idneys, adrenal glands, and spleen appear within normal limits. There is no evidence of abdominal lymphadenopathy. There is no free fluid or free air. The stomach grossly appears unremarkable. The small and large bowel loops demonstrate normal caliber and distribution. The appendix is not seen in the right lower quadrant abdomen. There are no secondary signs of acute appendiciti s. The abdominal aorta and IVC appear within normal limits. The bladder appears within normal limits the degree of distention. Pelvic organ is unremarkable. There is no evidence of a pelvic mass or lymphadenopathy. There is no free fluid collection. Lung bases are clear. There is no acute osseous abnormality. IMPRESSION: 1. There is no acute process in the abdomen and pelvis. 2. Mild fatty infiltration of the liver. Assessment/Plan Assessment/Plan Assessment: Intractable abdominal pain, Intractable nausea, Polysubstance abuse, Nicotine dependance, Transaminitis, Fatty liver, Plan: Admit to Med-Surg, IV hydration, Antiemetics, U/A, UDS, Counseled on smoking cessation for 12 minutes, Consider abdominal ultrasound if symptoms persist, Plan discussed with: Patient Date of Service: July 23, 2024 Billing Provider: LAYNE VALDEZ Common Visit Codes: [id number] INP/OBS CARE (MOD) LAYNE VALDEZ July 23, 2024 11:03
[2024-07-23] MEDS: ONDANSETRON HCL 4 MG/2 ML VIAL IV PRN (11:38)
[2024-07-23] MEDS: HYDROcodone-ACET 5/325MG TAB PO PRN (11:38)
[2024-07-23 13:00] VITALS: BP 176/104; PULSE 78; RESP 18; TEMP 98.2; O2SAT 99
[2024-07-23 16:31] VITALS: BP 155/87; PULSE 80; RESP 16; TEMP 99.3; O2SAT 94
[2024-07-23 21:00] VITALS: BP 159/95; PULSE 95; RESP 19; TEMP 99.6; O2SAT 95
[2024-07-23] MEDS: PANTOPRAZOLE 40 MG/10 ML VIAL INJ IV SCH (22:06)
[2024-07-23] MEDS: ACETAMINOPHEN 325 MG TAB PO PRN (22:06)
[2024-07-23 22:18] LABS: Urine Bacteria None Seen /hpf (None Seen)
[2024-07-23 22:24] LABS: Urine Blood Negative /uL (Negative); Urine Clarity Clear (Clear); Urine Color Yellow (Yellow); Urine Mucus FEW (None Seen); Urine Protein, UAD Negative (Negative); Urine Specific Gravity 1.037 (1.001-1.035); Urine Squamous Epithelial Cell None Seen /hpf (<5); Urine Urobilinogen 2 mg/dL (Negative); Urine WBC 1 /HPF (0-3)
[2024-07-23 22:38] LABS: Cannabinoid Screen, Urine Pos (NEGATIVE)
[2024-07-23 22:42] LABS: Amphetamine Screen, Urine Pos (NEGATIVE); Benzodiazephine Screen, Urine Neg (NEGATIVE); Cocaine Screen, Urine Neg (NEGATIVE); Opiate Scree,Urine Pos (NEGATIVE); Phencyclidine Screen, Urine Neg (NEGATIVE)
[2024-07-23 23:03] LABS: Barbiturate Scree,Urine Neg (NEGATIVE)
[2024-07-24 01:00] VITALS: BP 119/73; PULSE 94; RESP 19; TEMP 99.3; O2SAT 95
[2024-07-24 05:00] VITALS: BP 136/84; PULSE 83; RESP 18; TEMP 99; O2SAT 93
[2024-07-24 08:00] VITALS: PULSE 83; RESP 18; O2SAT 94
[2024-07-24 08:01] LABS: Basophils # (auto) 0 10 ^3/uL (0-0.2); Basophils % (auto) 0.4 % (0.0-2.0); Eosinophils # (auto) 0 10 ^3/uL (0-0.8); Eosinophils % (auto) 0.5 % (0.0-7.0); Hematocrit 47.7 % (41.0-53.0); Hemoglobin 16.3 g/dL (13.5-17.5); Lymphocytes # (auto) 1.7 10 ^3/uL (0.4-5.4); Lymphocytes % (auto) 18.3 % (10.0-50.0); Mean Corpuscular Hemoglobin 29.5 pg (28.0-32.0); Mean Corpuscular Volume 86.7 fL (80.0-100.0); Monocytes # (auto) 1.2 10 ^3/uL (0-1.3); Monocytes % (auto) 12.1 % (0.0-12.0); Neutrophils # (auto) 6.6 10 ^3/uL (1.6-8.6); Neutrophils % (auto) 68.7 % (37.0-80.0); Nucleated Red Blood Cells % 0.4 %; Platelet Count (auto) 278 10^3/uL (140-450); Red Blood Cells 5.51 10^6/uL (4.5-5.90); Red Cell Distribution Width 13.5 % (11.8-14.3); White Blood Cell 9.6 10^3/uL (4.4-10.8)
[2024-07-24 08:17] LABS: Alanine Aminotransferase 50 U/L (7-40); Albumin 4.2 g/dL (3.2-4.8); Alkaline Phosphatase 106 U/L (46-116); Anion Gap 11 (5-15); Aspartate Aminotransferase 28 U/L (13-40); BUN/Creatinine Ratio 10.4 (10.0-20.0); Blood Urea Nitrogen 10 mg/dL (9-23); Calcium 9.6 mg/dL (8.7-10.4); Carbon Dioxide 25 mmol/L (20-31); Chloride 103 mmol/L (98-107); Glucose 101 mg/dL (74-106); Potassium 3.4 mmol/L (3.5-5.1); Sodium 139 mmol/L (136-145); Total Protein 7.1 g/dL (5.7-8.2)
[2024-07-24 08:18] LABS: Bilirubin, Total 0.6 mg/dL (0.2-1.0)
[2024-07-24 09:00] VITALS: BP 158/97; PULSE 87; RESP 20; TEMP 99; O2SAT 92
[2024-07-24 13:00] VITALS: BP 162/99; PULSE 78; RESP 18; TEMP 97.8; O2SAT 93
--- NOTE | 2024-07-24 17:09 | DVHDS2 ---
Discharge Summary Date of Admission July 23, 2024 at 09:35 Date of Discharge: July 24, 2024 Labs/Diagnostic Data: Laboratory Results Test 07/24/24 06:49 07/23/24 22:10 07/23/24 06:46 White Blood Count 9.6 10^3/uL (4.4-10.8) Red Blood Count 5.51 10^6/uL (4.5-5.90) Hemoglobin 16.3 g/dL (13.5-17.5) Hematocrit 47.7 % (41.0-53.0) Mean Corpuscular Volume 86.7 fL (80.0-100.0) Mean Corpuscular Hemoglobin 29.5 pg (28.0-32.0) Mean Corpuscular Hemoglobin Concent 34.0 g/dL (32.0-36.0) Red Cell Distribution Width 13.5 % (11.8-14.3) Platelet Count 278 10^3/uL (140-450) Mean Platelet Volume 8.4 fL (6.9-10.8) Neutrophils (%) (Auto) 68.7 % (37.0-80.0) Lymphocytes (%) (Auto) 18.3 % (10.0-50.0) Monocytes (%) (Auto) 12.1 % (0.0-12.0) Eosinophils (%) (Auto) 0.5 % (0.0-7.0) Basophils (%) (Auto) 0.4 % (0.0-2.0) Neutrophils # (Auto) 6.6 10 ^3/uL (1.6-8.6) Lymphocytes # (Auto) 1.7 10 ^3/uL (0.4-5.4) Monocytes # (Auto) 1.2 10 ^3/uL (0-1.3) Eosinophils # (Auto) 0 10 ^3/uL (0-0.8) Basophils # (Auto) 0 10 ^3/uL (0-0.2) Nucleated Red Blood Cells 0.4 % Sodium Level 139 mmol/L (136-145) Potassium Level 3.4 mmol/L (3.5-5.1) Chloride Level 103 mmol/L (98-107) Carbon Dioxide Level 25 mmol/L (20-31) Anion Gap 11 (5-15) Blood Urea Nitrogen 10 mg/dL (9-23) Creatinine 0.96 mg/dL (0.700-1.30) Glomerular Filtration Rate Calc 91 mL/min (>90) BUN/Creatinine Ratio 10.4 (10.0-20.0) Serum Glucose 101 mg/dL (74-106) Calcium Level 9.6 mg/dL (8.7-10.4) Total Bilirubin 0.6 mg/dL (0.2-1.0) Aspartate Amino Transferase (AST) 28 U/L (13-40) Alanine Aminotransferase (ALT) 50 U/L (7-40) Alkaline Phosphatase 106 U/L (46-116) Total Protein 7.1 g/dL (5.7-8.2) Albumin 4.2 g/dL (3.2-4.8) Urine Color Yellow (Yellow) Urine Clarity Clear (Clear) Urine pH 6.0 (5.0-9.0) Urine Specific [place] 1.037 (1.001-1.035) Urine Protein Negative (Negative) Urine Ketones Negative (Negative) Urine Blood Negative /uL (Negative) Urine Nitrite Negative (Negative) Urine Bilirubin Negative (Negative) Urine Urobilinogen 2 mg/dL (Negative) Urine Leukocyte Esterase Negative /uL (Negative) Urine RBC 1 /hpf (0 - 3) Urine Microscopic WBC 1 /HPF (0-3) Urine Squamous Epithelial Cells None seen /hpf (<5) Urine Bacteria None seen /hpf (None Seen) Urine Mucus Few (None Seen) Urine Glucose Normal mg/dL (Normal) Urine Opiates Screen Pos (NEGATIVE) Urine Fentanyl Screen Neg (NEGATIVE) Urine Barbiturates Screen Neg (NEGATIVE) Urine Phencyclidine Screen Neg (NEGATIVE) Urine Amphetamines Screen Pos (NEGATIVE) Urine Benzodiazepines Screen Neg (NEGATIVE) Urine Cocaine Screen Neg (NEGATIVE) Urine Cannabinoids Screen Pos (NEGATIVE) Lipase 42 U/L (12-53) Other Laboratory Tests 07/24/24 06:49 Brief Hx & Hospital Course: 59-year-old male with no significant past medial history who came in for abdominal pain, nausea, and vomiting. Patient was stated that pain was started like three days ago associated with the nausea vomiting. CT abdomen and pelvis was done which shows no evidence of any acute pathology. Patient does have chronic marijuana use. Patient left against medical advice before completion of workup and treatment. Condition at Discharge: Undetermined Final Diagnosis/Problems List 1. Intractable abdominal pain 2. Nausea vomiting 3. Chronic tobacco use disorder 4. Chronic marijuana use 5. Fatty liver 6. Transaminitis Discharge Disposition: AMA SNF Discharge Will this Physician continue t: No Discharge Statement: "Patient was advised to return to the ER or call 911 if any headaches, dizziness, shortness of breath, chest pain, abdominal pain, bleeding, fevers, or worsening of medical condition. Patient was counseled about treatment plan, medications, possible side effects, patientverbalized understanding. All questions were answered to the best of my ability. This discharge took greater then 30 minutes in planning, reviewing documentation, counseling the patient, and discussing with other team members." ASSESSMENT ASSESSMENT Assessment Date of Service: July 24, 2024 Billing Provider: BOLIVAR JARVIS MD Common Visit Codes: [id number] DISCH DAY <30MIN BOLIVAR JARVIS MD July 24, 2024 17:09
== END 2024-07-24 15:00 | disposition left against medical advice (07) | DRG 249 ==
LOC: EDBD 06:13 → ER 06:13 → OVERFLOW 09:35 → WEST WING 11:26
PROVIDERS: ADMIT Nurse Practitioner Family; ATTEND Nurse Practitioner Family
DX: R11.2 Nausea with vomiting, unspecified (principal); K76.0 Fatty (change of) liver, not elsewhere classified; F12.90 Cannabis use, unspecified, uncomplicated; Z53.29 Procedure and treatment not carried out because of patient's decision for other reasons; F17.200 Nicotine dependence, unspecified, uncomplicated; F19.10 Other psychoactive substance abuse, uncomplicated; Z71.6 Tobacco abuse counseling; Z88.0 Allergy status to penicillin; Z79.2 Long term (current) use of antibiotics; Z90.49 Acquired absence of other specified parts of digestive tract; Z79.899 Other long term (current) drug therapy
CPT/HCPCS: 36415; 71045; 74177; 80053; 80307; 81001; 83690; 85025; 96361; 96374; 96375; 99291; G0378; J2405; J2470